=== PATIENT | female | born 1975 | race Asian ===

== ENCOUNTER → 2017-01-18 | Outpatient (CLI) | payer OTHER ==
--- NOTE | ~2017-01-18 | MY11 ---
[facility] A Service [facility] RADIOLOGY TEXT RESULTS PATIENT: NAVEED MARTINES LOCATION: [facility] : 71 UNIT #: [id number] AGE: [address]: ISACC ARMENDARIZ APRN SEX: F ORDER DR: [id number] [address] [address] [id number] O MR#: [id number] Acc #: [id number] NAME: NAVEED MARTINES : 1975 SEX: F STUDY DATE/TIME: 01/18/2017 13:32 UNIT: [facility] ROOM: STUDY DESCRIPTION: MY Mammogram Screening Dig Sonny Ordering Physician: Ashlyn Raines Primary Care Physician: Jo-Ann Boyd Aprn MEDICAL IMAGING REPORT This report is preliminary unless electronic signature is present. EXAM Digital screening mammogram 01/18/2017 HISTORY 41-year-old woman, no risk elevation. Annual screening. COMPARISON STUDIES 12/30/2014, 01/12/2016. FINDINGS Digital imaging of each breast was completed utilizing screening protocol. Review includes FDA-approved CAD device. Breast parenchyma remains moderately dense and heterogeneous with combination fibroglandular opacities and mild parenchymal nodularity. Subareolar duct prominence is noted bilaterally. The findings are slightly dominant in the right breast. I see no suspicious mass. There are no interval occurring microcalcifications and no suspicious architectural deformity. IMPRESSION Stable benign mammogram. Annual screening recommended. BIRADS: 2 Benign Finding. Patients over the age of 40 are entered into a reminder system with target due date for the next mammogram. A result letter will also be sent to the patient. Dictated by... Russell Fernandez M.D. [facility] A Service [facility] RADIOLOGY TEXT RESULTS PATIENT: NAVEED MARTINES LOCATION: [facility] : 71 UNIT #: [id number] AGE: [address]: ISACC ARMENDARIZ APRN SEX: F ORDER DR: THIS IS AN ELECTRONICALLY VERIFIED REPORT Russell Fernandez M.D. at 01/19/2017 8:04 AM ANTONIO/terese TD: 01/18/2017 20:41 JOB #: [id number] MEDICAL IMAGING REPORT Page 1 of 1
== END | disposition home or self-care (01) ==
LOC: SMAM 12:53
DX: Z12.31 Encounter for screening mammogram for malignant neoplasm of breast (principal)
CPT/HCPCS: G0202